=== PATIENT | female | born 1990 | race African-American/Black ===

== ENCOUNTER 2017-07-26 08:27 | Emergency (ER) | payer OTHER ==
[2017-07-26] MEDS: ONDANSETRON ODT 4 MG TAB.RAPDIS. PO (08:58)
[2017-07-26 08:59] LABS: URINE HCG POC HCG NEGATIVE (Negative)
[2017-07-26 09:03] LABS: BILIRUBIN,URINE NEGATIVE (NEG); CLARITY,URINE CLEAR; COLOR,URINE YELLOW; GLUCOSE,URINE NEGATIVE (NEG); NITRITE,URINE NEGATIVE (NEG); PH,URINE 7.5; PROTEIN,URINE NEGATIVE (NEG-TRACE); UROBILINOGEN,URINE 0.2 mg/dL (0.2 mg/dL)
[2017-07-26 09:10] LABS: BACTERIA,URINE 0 /HPF (0-FEW); RBC,URINE 0 /HPF (0-2); SQUAMOUS EPITHELIAL CELL,UR MOD /LPF
[2017-07-26 09:22] LABS: ADD MAN DIFF? NO
[2017-07-26 09:24] LABS: BASO # 0.1 x10^3/uL (0.0-0.2); BASO % 1 % (0-3); EOS # 0.1 x10^3/uL (0.0-0.7); EOS % 1 % (0-3); HEMATOCRIT 42.7 % (36.0-47.0); HEMOGLOBIN 14.2 g/dL (12.0-15.5); LYMPH # 2.4 x10^3/uL (1.0-4.8); LYMPH % 38 % (24-48); MEAN CORPUSCULAR HEMOGLOBIN 30 pg (25-35); MEAN CORPUSCULAR HGB CONC 33 g/dL (31-37); MEAN CORPUSCULAR VOLUME 90 fL (79-100); MONO # 0.4 x10^3/uL (0.0-1.1); MONO % 6 % (0-9); NEUT # 3.4 x10^3uL (1.8-7.7); NEUT % 53 % (31-73); PLATELET COUNT 190 x10^3/uL (140-400); RED BLOOD COUNT 4.74 x10^6/uL (3.50-5.40); WHITE BLOOD COUNT 6.3 x10^3/uL (4.0-11.0)
[2017-07-26 09:32] LABS: ANION GAP 7 (6-14); BLOOD UREA NITROGEN 16 mg/dL (7-20); BUN/CREATININE RATIO 15 (6-20); CALCIUM 8.7 mg/dL (8.5-10.1); CARBON DIOXIDE 29 mmol/L (21-32); CHLORIDE 104 mmol/L (98-107); CREATININE 1.1 mg/dL (0.6-1.0); GFR 71.1; GLUCOSE 87 mg/dL (70-99); POTASSIUM 3.8 mmol/L (3.5-5.1); SODIUM 140 mmol/L (136-145)
[2017-07-26 09:40] LABS: ALBUMIN 3.5 g/dL (3.4-5.0); ALBUMIN/GLOBULIN RATIO 0.9 (1.0-1.7); ALK PHOS 28 U/L (46-116); ALT (SGPT) 23 U/L (14-59); AST (SGOT) 18 U/L (15-37); TOTAL BILIRUBIN 0.3 mg/dL (0.2-1.0); TOTAL PROTEIN 7.3 g/dL (6.4-8.2)
== END 2017-07-26 10:21 | disposition home or self-care (01) ==
LOC: ER 08:27
DX: R11.2 Nausea with vomiting, unspecified (principal)
CPT/HCPCS: 36415; 80053; 81001; 81025; 85025; 99284; Q0162

== ENCOUNTER → 2017-10-08 | Day surgery (SDC) | payer OTHER ==
[~2017-10-08] MED LIST: HYDROmorphone 2 MG/ML VIAL IV; IV RINGERS,LACTATED 1000ML 1,000 ML IV; LIDOCAINE 1% PF 2 ML VIAL. ID; MIDAZOLAM HCL/PF 2 MG/2 ML VIAL. IV; MORPHINE SULFATE 4 MG/ML DISP.SYRIN. IV; ONDANSETRON PF 4 MG/2 ML VIAL. IV; PROCHLORPERAZINE 10 MG/2 ML VIAL. IV; PROPOFOL 20 ML IV; fentaNYL PF VIAL 100 MCG/2 ML VIAL IV
[2017-10-08] MEDS: IV RINGERS,LACTATED 1000ML 1,000 ML IV (06:16)
[2017-10-08 10:03] LABS: NEG OBC UR NEG; POS OBC UR POS; U PREG PATIENT NEGATIVE (NEG)
== END ==
LOC: ENDOS 08:02
DX: R10.32 Left lower quadrant pain (principal); K64.8 Other hemorrhoids; Z79.899 Other long term (current) drug therapy
CPT/HCPCS: 45378; 81025; J2704

== ENCOUNTER 2018-01-23 09:41 | Day surgery (SDC) | payer OTHER ==
[~2018-01-23 09:41] MED LIST changes: +GLUCAGON,HUMAN RECOMBINANT 1 MG/ML VIAL.; -HYDROmorphone 2 MG/ML VIAL IV; +IOHEXOL 300 MG/ML 100ML VIAL.; -IV RINGERS,LACTATED 1000ML 1,000 ML IV; -MIDAZOLAM HCL/PF 2 MG/2 ML VIAL. IV; +MORPHINE SULFATE 2 MG/ML DISP.SYRIN. IV; -MORPHINE SULFATE 4 MG/ML DISP.SYRIN. IV; -ONDANSETRON PF 4 MG/2 ML VIAL. IV; -PROCHLORPERAZINE 10 MG/2 ML VIAL. IV; -PROPOFOL 20 ML IV; +SURGICEL HEMOSTAT 2X14 EACH.; +SURGICEL HEMOSTAT 4X8 EACH.
[2018-01-23] MEDS ORDERED: ROCURONIUM 50 MG/5 ML VIAL. (09:48)
[2018-01-23] MEDS ORDERED: LIDOCAINE 2% PF Vial for OR 5 ML VIAL. (09:48)
[2018-01-23] MEDS ORDERED: ONDANSETRON PF 4 MG/2 ML VIAL. (09:48)
[2018-01-23] MEDS ORDERED: fentaNYL PF VIAL 100 MCG/2 ML VIAL ×2 (09:48→11:49)
[2018-01-23] MEDS ORDERED: PROPOFOL 20 ML IV (09:48)
[2018-01-23] MEDS ORDERED: DEXAMETHASONE SOD PHOS 20 MG/5 ML VIAL. (09:48)
[2018-01-23] MEDS ORDERED: MIDAZOLAM HCL/PF 2 MG/2 ML VIAL. (09:48)
[2018-01-23 10:11] LABS: NEG OBC UR NEG; POS OBC UR POS; U PREG PATIENT NEGATIVE (NEG)
[2018-01-23 10:33] LABS: ADD MAN DIFF? NO
[2018-01-23] MEDS: IV RINGERS,LACTATED 1000ML 1,000 ML IV ×3 (10:33→14:57)
[2018-01-23 10:35] LABS: BASO # 0.1 x10^3/uL (0.0-0.2); BASO % 1 % (0-3); EOS # 0.1 x10^3/uL (0.0-0.7); EOS % 1 % (0-3); HEMATOCRIT 40.1 % (36.0-47.0); HEMOGLOBIN 13.4 g/dL (12.0-15.5); LYMPH # 2.2 x10^3/uL (1.0-4.8); LYMPH % 43 % (24-48); MEAN CORPUSCULAR HEMOGLOBIN 31 pg (25-35); MEAN CORPUSCULAR HGB CONC 33 g/dL (31-37); MEAN CORPUSCULAR VOLUME 92 fL (79-100); MONO # 0.4 x10^3/uL (0.0-1.1); MONO % 7 % (0-9); NEUT # 2.4 x10^3uL (1.8-7.7); NEUT % 47 % (31-73); PLATELET COUNT 140 x10^3/uL (140-400); RED BLOOD COUNT 4.39 x10^6/uL (3.50-5.40); RED CELL DISTRIBUTION WIDTH 12.7 % (11.5-14.5); WHITE BLOOD COUNT 5.2 x10^3/uL (4.0-11.0)
[2018-01-23 10:52] LABS: ANION GAP 7 (6-14); BLOOD UREA NITROGEN 21 mg/dL (7-20); CALCIUM 8.4 mg/dL (8.5-10.1); CARBON DIOXIDE 28 mmol/L (21-32); CHLORIDE 105 mmol/L (98-107); CREATININE 1.2 mg/dL (0.6-1.0); GFR 64.3; GLUCOSE 80 mg/dL (70-99); POTASSIUM 3.8 mmol/L (3.5-5.1); SODIUM 140 mmol/L (136-145)
[2018-01-23 10:57] LABS: ALBUMIN 3.8 g/dL (3.4-5.0); TOTAL BILIRUBIN 0.6 mg/dL (0.2-1.0)
[2018-01-23] MEDS ORDERED: FAMOTIDINE 20 MG/2 ML VIAL (11:03)
[2018-01-23] MEDS ORDERED: KETOROLAC 30 MG/ML INJ FOR OR. INJ (11:25)
[2018-01-23] MEDS ORDERED: NEOSTIGMINE METHYLSULFATE 5 MG/5 ML SYRINGE. (11:26)
[2018-01-23] MEDS ORDERED: GLYCOPYRROLATE 1 MG/5 ML VIAL. (11:26)
[2018-01-23] MEDS ORDERED: SEVOFLURANE 61 TO 120 MINUTES. IH (11:26)
[2018-01-23] MEDS: BUPIVACAINE-EPI 0.25%-1:200000 50 ML VIAL. (11:37)
[2018-01-23] MEDS: IOHEXOL 300 MG/ML 100ML VIAL. IV (11:37)
[2018-01-23] MEDS: PROCHLORPERAZINE 10 MG/2 ML VIAL. IV (13:05)
[2018-01-23] MEDS: fentaNYL PF VIAL 100 MCG/2 ML VIAL IV ×2 (13:06→14:14)
[2018-01-23] MEDS ORDERED: HYDROcodone/APAP 5/325MG 1 TAB TABLET PO (13:30)
[2018-01-23] MEDS: ONDANSETRON PF 4 MG/2 ML VIAL. IV (16:10)
[2018-01-23] MEDS: HYDROcodone/APAP 5/325MG 1 TAB TABLET PO (16:18)
== END 2018-01-23 17:06 | disposition home or self-care (01) ==
LOC: SURG 09:41
DX: K81.1 Chronic cholecystitis (principal); K82.8 Other specified diseases of gallbladder
CPT/HCPCS: 36415; 74300; 80048; 81025; 82040; 82247; 85025; 88304; A7015; J0690; J0780; J1100; J1610; J1885; J2001; J2250; J2405; J2704; J2710; J3010; J3490; J7030; Q9967; S0028

== ENCOUNTER → 2020-01-13 | Outpatient (CLI) | payer OTHER ==
[2018-01-23 16:00] VITALS: BP 125/72
[~2020-01-13] MED LIST changes: +ESTR1TAB6 PO; -GLUCAGON,HUMAN RECOMBINANT 1 MG/ML VIAL.; +HYDR-2761 PO; -IOHEXOL 300 MG/ML 100ML VIAL.; -LIDOCAINE 1% PF 2 ML VIAL. ID; -MORPHINE SULFATE 2 MG/ML DISP.SYRIN. IV; +ONDA4TAB10 SL; -SURGICEL HEMOSTAT 2X14 EACH.; -SURGICEL HEMOSTAT 4X8 EACH.; -fentaNYL PF VIAL 100 MCG/2 ML VIAL IV
--- NOTE | 2020-01-13 10:58 | KCIC ---
EXAMINATION: MRI right knee without contrast INDICATIONS: Right knee pain, injury one year ago. Posterior and lateral pain. TECHNIQUE: Multiplanar multisequence MRI of the right knee was obtained without contrast. COMPARISON: Right knee radiograph 01/03/2020 FINDINGS: MENISCI: The medial and lateral menisci are intact. LIGAMENTS: The anterior cruciate ligament is intact. There is slight thickening of the proximal patellar tendon, which is low in signal, possibly within normal limits or sequela of old mild injury. The medial collateral ligament and lateral collateral ligament complex including popliteus tendon and iliotibial band are intact. EXTENSOR MECHANISM: The quadriceps and patellar tendons are intact. Mild edema in the suprapatellar fat pad, nonspecific. Retinacula are intact. BONES AND CARTILAGE: No acute fracture. Marrow signal is normal. There is minimal superficial partial-thickness cartilage loss in the inner lateral compartment. Patellofemoral and medial compartment cartilage is intact. OTHER: No joint effusion. No Godinez cyst or bursitis. Muscles and subcutaneous soft tissue are normal. IMPRESSION: 1. No acute meniscal or ligamentous injury. 2. Slight thickening of the posterior cruciate ligament proximally, which could be within normal limits or could be sequela of old mild injury. Electronically signed by: Ely Huerta MD (01/13/2020 10:55 AM) [id number]
== END ==
LOC: KCIC MRI 08:59
PROVIDERS: ATTEND Orthopaedic Surgery Sports Medicine
DX: M25.561 Pain in right knee (principal)
CPT/HCPCS: 73721

== ENCOUNTER 2021-01-27 15:15 | Emergency (ER) | payer OTHER ==
[~2021-01-27] VITALS: Ht 170.2 cm; Wt 62.7 kg
[2021-01-27] MEDS ORDERED: diphenhydrAMINE 50 MG/ML VIAL IVP ONE (18:30)
--- NOTE | 2021-01-27 18:34 | ED.ADGEN ---
Past Medical History Past Medical History: No Pertinent History Past Surgical History: No Surgical History Smoking Status: Never Smoker Alcohol Use: None Drug Use: None General Adult EDM: Chief Complaint: EYE PROBLEMS HPI: HPI: Patient is a 30 year old female coming in for left thigh swelling, and unable to open eye. Patient states that her physician prescribed her Viibryd for depression and she took 1 dose 2 days ago. And woke up the next morning with her left eye swollen. Today her swelling is gone is started to involve her right eye. Eye is matted shut on the left. Denies any eye pain or itching. Denies any bites, stings or injury to the skin around her eye. Wears glasses but does not wear contacts. Has had subjective fever and chills. Has been using ice which temporarily reduces the swelling. Review of Systems: Review of Systems: All other systems within normal limits except for as noted in the HPI Current Medications: Current Medications Medications (Trade) Dose Ordered Sig/Margot Start Time Stop Time Status Last Admin Dose Admin Amoxicillin/ Clavulanate Potassium (Augmentin 875/ 125mg) 1 tab 1X ONCE 01/27/21 20:30 01/27/21 20:31 Clindamycin HCl (Cleocin) 300 mg 1X ONCE 01/27/21 20:30 01/27/21 20:31 Diphenhydramine HCl (Benadryl) 25 mg 1X ONCE 01/27/21 18:30 01/27/21 18:31 DC 01/27/21 19:00 25 MG Info (CONTRAST GIVEN -- Rx MONITORING) 1 each PRN DAILY PRN 01/27/21 19:15 01/29/21 19:14 Iohexol (Omnipaque 300 Mg/ml) 70 ml 1X ONCE 01/27/21 19:30 01/27/21 19:31 DC 01/27/21 19:46 70 ML Prednisone (Prednisone) 50 mg 1X ONCE 01/27/21 20:30 01/27/21 20:31 Allergies: Allergies: Allergies Coded Allergies Type Severity Reaction Last Updated Verified No Known Drug Allergies 01/23/18 No Physical Exam: PE: Constitutional: Well developed, well nourished, no acute distress, non-toxic appearance. [] HENT: Normocephalic, atraumatic, bilateral external ears normal, nose normal. Swelling around left orbit, minimally able to open eye, purulent crusting on lashes, visualized portion of conjunctiva not erythematous. Swelling around the right eye to a lesser extent. Pupils equal and reactive, extraocular is inta ct. [] Eyes: PERRLA, conjunctiva normal, no discharge. [] Neck: No rigidity, supple, no stridor. [] Cardiovascular: Regular rate and rhythm, brisk cap refill [] Lungs & Thorax: Non labored symmetric respirations, no tachypnea or respiratory distress [] Abdomen: Soft, nondistended. Skin: Warm, dry, no erythema, no rash. [] Back: Unremarkable Extremities: No deformities, range of motion grossly intact, no lower extremity edema [] Neurologic: Alert and oriented X 3, no focal deficits noted. [] Psychologic: Affect normal, judgement normal, mood normal. [] Current Patient Data: Labs: Laboratory Tests Test 01/27/21 18:55 White Blood Count 8.5 x10^3/uL (4.0-11.0) Red Blood Count 4.26 x10^6/uL (3.50-5.40) Hemoglobin 13.4 g/dL (12.0-15.5) Hematocrit 40.5 % (36.0-47.0) Mean Corpuscular Volume 95 fL (79-100) Mean Corpuscular Hemoglobin 32 pg (25-35) Mean Corpuscular Hemoglobin Concent 33 g/dL (31-37) Red Cell Distribution Width 12.3 % (11.5-14.5) Platelet Count 202 x10^3/uL (140-400) Neutrophils (%) (Auto) 56 % (31-73) Lymphocytes (%) (Auto) 30 % (24-48) Monocytes (%) (Auto) 9 % (0-9) Eosinophils (%) (Auto) 6 % (0-3) H Basophils (%) (Auto) 1 % (0-3) Neutrophils # (Auto) 4.7 x10^3/uL (1.8-7.7) Lymphocytes # (Auto) 2.5 x10^3/uL (1.0-4.8) Monocytes # (Auto) 0.7 x10^3/uL (0.0-1.1) Eosinophils # (Auto) 0.5 x10^3/uL (0.0-0.7) Basophils # (Auto) 0.1 x10^3/uL (0.0-0.2) Sodium Level 141 mmol/L (136-145) Potassium Level 4.6 mmol/L (3.5-5.1) Chloride Level 106 mmol/L (98-107) Carbon Dioxide Level 30 mmol/L (21-32) Anion Gap 5 (6-14) L Blood Urea Nitrogen 19 mg/dL (7-20) Creatinine 1.1 mg/dL (0.6-1.0) H Estimated GFR (Cockcroft-Gault) 69.6 BUN/Creatinine Ratio 17 (6-20) Glucose Level 79 mg/dL (70-99) Calcium Level 8.5 mg/dL (8.5-10.1) Total Bilirubin 0.4 mg/dL (0.2-1.0) Aspartate Amino Transferase (AST) 18 U/L (15-37) Alanine Aminotransferase (ALT) 21 U/L (14-59) Alkaline Phosphatase 45 U/L (46-116) L Total Protein 7.6 g/dL (6.4-8.2) Albumin 3.8 g/dL (3.4-5.0) Albumin/Globulin Ratio 1.0 (1.0-1.7) Laboratory Tests 01/27/21 18:55 Laboratory Tests 01/27/21 18:55 Vital Signs: Vital Signs Date Time Temp Pulse Resp B/P (MAP) Pulse Ox O2 Delivery O2 Flow Rate FiO2 01/27/21 18:21 98.7 72 18 123/69 (89) 100 Room Air 98.7 EKG: EKG: [] Heart Score: C/O Chest Pain: No Risk Factors: Risk Factors: DM, Current or recent (<one month) smoker, HTN, HLP, family hist ory of CAD, obesity. Risk Scores: Score 0 - 3: 2.5% MACE over next 6 weeks - Discharge Home Score 4 - 6: 20.3% MACE over next 6 weeks - Admit for Clinical Observation Score 7 - 10: 72.7% MACE over next 6 weeks - Early Invasive Strategies Radiology/Procedures: Radiology/Procedures: [facility] [address] [place], [place] [id number] IMAGING REPORT Signed PATIENT: GIBRAN MCKEE ACCOUNT: [id number] : 1990 LOCATION: ER AGE: 30 SEX: F EXAM STATUS: REG ER ORD. PHYSICIAN: ESAU VENEGAS MD REASON: left eye cellulitis PROCEDURE: CT ORBITS W/CONTRAST Exam: CT of orbits with contrast INDICATION: Left eye cellulitis TECHNIQUE: Sequential axial images through the orbits obtained following the administration of 70 mL of Omni 300 IV contrast. Sagittal and coronal reformatted images were reconstructed from the axial data and reviewed. Exposure: One or more of the following in the visualized dose reduction techniques were utilized for this examination: 1. Automated exposure control 2. Adjustment of the MA and/or KV according to patient size 3. Use of iterative of reconstructive technique Comparisons: None FINDINGS: Visualized cranial structures are unremarkable. There is soft tissue prominence and edema overlying the left orbit involving the preseptal soft tissues. The globes and intraorbital contents are unremarkable. Visualized portions of the paranasal sinuses and mastoid air cells are well- pneumatized. No acute fracture. IMPRESSION: Extensive soft tissue edema overlying the left orbit and left face consistent with history of cellulitis. Underlying globe and intraorbital contents are unremarkable. No focal fluid collection identified. Electronically signed by: Buffy Ramirez MD (01/27/2021 8:11 PM) [facility] DICTATED and SIGNED BY: BUFFY RAMIREZ MD DATE: 01/27/[id number] 0 [] Course & Med Decision Making: Course & Med Decision Making Pertinent Labs and Imaging studies reviewed. (See chart for details) [] Dragon Disclaimer: Dragon Disclaimer: This electronic medical record was generated, in whole or in part, using a voice recognition dictation system. Departure Departure Impression: Primary Impression: Periorbital cellulitis of left eye Disposition: 01 HOME / SELF CARE / HOMELESS Condition: STABLE Referrals: Marvin MURILLO MD (PCP) Patient Instructions: Periorbital Cellulitis Additional Instructions: Use Benadryl with ice pack or cool washcloths for swelling. Use cool wet washcloth to remove crusting around eyelashes. Scripts Prednisone (PREDNISONE) 50 Mg Tablet 1 TAB PO DAILY for 4 Days, #4 TAB Prov: ESAU VENEGAS MD 01/27/21 Clindamycin Hcl (CLINDAMYCIN HCL) 300 Mg Capsule 1 CAP PO TID for antiboitic for 7 Days, #21 CAP Prov: ESAU VENEGAS MD 01/27/21 Amoxicillin/Potassium Clav (AUGMENTIN 875-125 TABLET) 1 Each Tablet 1 TAB PO Q12HR for antibiotic for 7 Days, #14 TAB Prov: ESAU VENEGAS MD 01/27/21 ESAU VENEGAS MD Jan 27, 2021 18:34
[2021-01-27 19:09] LABS: BASO # 0.1 x10^3/uL (0.0-0.2); BASO % 1 % (0-3); EOS # 0.5 x10^3/uL (0.0-0.7); EOS % 6 % (0-3); HEMATOCRIT 40.5 % (36.0-47.0); HEMOGLOBIN 13.4 g/dL (12.0-15.5); LYMPH # 2.5 x10^3/uL (1.0-4.8); LYMPH % 30 % (24-48); MEAN CORPUSCULAR HEMOGLOBIN 32 pg (25-35); MEAN CORPUSCULAR HGB CONC 33 g/dL (31-37); MEAN CORPUSCULAR VOLUME 95 fL (79-100); MONO # 0.7 x10^3/uL (0.0-1.1); MONO % 9 % (0-9); NEUT # 4.7 x10^3/uL (1.8-7.7); NEUT % 56 % (31-73); PLATELET COUNT 202 x10^3/uL (140-400); RED BLOOD COUNT 4.26 x10^6/uL (3.50-5.40); RED CELL DISTRIBUTION WIDTH 12.3 % (11.5-14.5); WHITE BLOOD COUNT 8.5 x10^3/uL (4.0-11.0)
[2021-01-27] MEDS ORDERED: CONTRAST GIVEN. MC PRN (19:15)
[2021-01-27 19:20] LABS: CALCIUM 8.5 mg/dL (8.5-10.1); CREATININE 1.1 mg/dL (0.6-1.0); GFR 69.6; POTASSIUM 4.6 mmol/L (3.5-5.1)
[2021-01-27 19:24] LABS: ALBUMIN 3.8 g/dL (3.4-5.0); TOTAL BILIRUBIN 0.4 mg/dL (0.2-1.0); TOTAL PROTEIN 7.6 g/dL (6.4-8.2)
[2021-01-27] MEDS ORDERED: IOHEXOL 300 MG/ML 100ML VIAL. IV ONE (19:30)
--- NOTE | 2021-01-27 20:14 | RAD ---
Exam: CT of orbits with contrast INDICATION: Left eye cellulitis TECHNIQUE: Sequential axial images through the orbits obtained following the administration of 70 mL of Omni 300 IV contrast. Sagittal and coronal reformatted images were reconstructed from the axial da ta and reviewed. Exposure: One or more of the following in the visualized dose reduction techniques were utilized for this examination: 1. Automated exposure control 2. Adjustment of the MA and/or KV according to patient size 3. Use of iterative of reconstructive technique Comparisons: None FINDINGS: Visualized cranial structures are unremarkable. There is soft tissue prominence and edema overlying the left orbit involving the preseptal soft tissu es. The globes and intraorbital contents are unremarkable. Visualized portions of the paranasal sinuses and mastoid air cells are well-pneumatized. No acute fracture. IMPRESSION: Extensive soft tissue edema overlying the left orbit and left face consistent with history of celluli tis. Underlying globe and intraorbital contents are unremarkable. No focal fluid collection identifie d. Electronically signed by: Buffy Dickerson MD (01/27/2021 8:11 PM) [place]
[2021-01-27] MEDS ORDERED: AMOX1TAB61 PO (20:27)
[2021-01-27] MEDS ORDERED: PRED50TA PO (20:27)
[2021-01-27] MEDS ORDERED: CLIN300C9 PO (20:27)
[2021-01-27] MEDS ORDERED: CLINDAMYCIN HCL 150 MG CAPSULE. PO ONE (20:30)
[2021-01-27] MEDS ORDERED: predniSONE 10 MG TABLET PO ONE (20:30)
[2021-01-27] MEDS ORDERED: AMOXICILLIN/K CLAV 875/125MG TABLET. PO ONE (20:30)
[2021-01-27 20:31] VITALS: BP 119/76
== END 2021-01-27 20:50 | disposition home or self-care (01) ==
LOC: ER 15:15
DX: L03.213 Periorbital cellulitis (principal)
CPT/HCPCS: 36415; 70481; 80053; 85025; 96374; 99285; J1200; J7512; Q9967